=== PATIENT | male | born 1965 | race Caucasian/White ===

== ENCOUNTER 2017-08-08 20:15 | Emergency (ER) | payer SELFPAY ==
[~2017-08-08] VITALS: Ht 195.6 cm; Wt 80.0 kg
[2017-08-08 20:59] VITALS: BP 121/59; PULSE 89; RESP 16; TEMP 98.6; O2SAT 98
--- NOTE | 2017-08-08 21:04 | PD ---
HPI Chief Complaint: Skin Problem Time Seen by Provider: 20:55 Travel History International Travel<30 days: No Contact w/Intl Traveler<30days: No Traveled to known affect area: No History of Present Illness HPI This is a 51-year-old male who is currently homeless who presents for evaluation of medial right foot pain. He reports that 4 [place] he feels like a crap claw that his medial right foot. He reports that he had a wound after that. Since then he has had persistent pain at the site of the wound, aching, constant, aggravated by walking, no relieving factors. He has had difficulty with wound care secondary to his current homeless status. Today he was able to receive a free pair of crutches so he has been using that today to help stay off of the foot. His last tetanus vaccination is unknown. Denies fevers, chills, calf or thigh pain. Denies any weakness. No other complaints. PFSH Past Medical History ?: Not Social History Tobacco Use: Yes Allergies-Medications (Allergen,Severity, Reaction): Coded Allergies: No Known Allergies (Unverified , 08/08/17) Reported Meds & Prescriptions Reported Meds & Active Scripts Active Bactroban Topical (Mupirocin) 22 Gm Cream 1 Applic TOPICAL BID Doxycycline Hyclate 100 Mg Cap 100 Mg PO BID Review of Systems Except as stated in HPI: all other systems reviewed are Neg Physical Exam Narrative GENERAL: Well-developed well-nourished male in no acute distress SKIN: Warm and dry. Examination of the medial right foot reveals a 2 cm circular area of superficial excoriation/ulceration. There is some surrounding scabbing. No erythema or induration. HEAD: Atraumatic. Normocephalic. EYES: Pupils equal and round. No scleral icterus. No injection or drainage. ENT: No nasal bleeding or discharge. Mucous membranes pink and moist. NECK: Trachea midline. No JVD. CARDIOVASCULAR: Regular rate and rhythm. No murmur appreciated. RESPIRATORY: No accessory muscle use. Clear to auscultation. Breath sounds equal bilaterally. GASTROINTESTINAL: Abdomen soft, non-tender, nondistended. Hepatic and splenic margins not palpable. MUSCULOSKELETAL: No obvious deformities. No clubbing. No cyanosis. No edema. Skin as noted above. 2+ dorsalis pedis and posterior tibial pulses. Full range of motion right foot. NEUROLOGICAL: Awake and alert. No obvious cranial nerve deficits. Data Data Last Documented VS Vital Signs Date Time Temp Pulse Resp B/P (MAP) Pulse Ox O2 Delivery O2 Flow Rate FiO2 08/08/17 20:59 98.6 89 16 121/59 (79) 98 Orders Orders Tetanus/Diphtheria Tox Adult (Tetanus/Di (08/08/17 21:15) Foot, Complete ([id number]) (08/08/17 ) Doxycycline (Vibramycin) (08/08/17 21:45) Ed Discharge Order (08/08/17 21:44) MDM Medical Decision Making Medical Screen Exam Complete: Yes Emergency Medical Condition: Yes Medical Record Reviewed: Yes Differential Diagnosis Foot ulcer, cellulitis, abscess, osteomyelitis, necrotizing fasciitis Narrative Course 51-year-old male presents with a circular superficial ulceration in the medial right foot secondary to [place]. Wound care secondary to being homeless. An x-ray was obtained and there is no evidence of osteomyelitis. Tetanus status was updated. Discussed the importance of wound care as the primary catalyst for treatment. He will be discharged with prescriptions for Bactroban and doxycycline. Discussed signs and symptoms that would warrant returning to the emergency room. Diagnosis Primary Impression: Wound, open, foot Additional Instructions: Wash the wound twice a day with soap and water and apply antibiotic cream and clean bandages. Antibiotic as prescribed. Return for any acutely new or worsening symptoms. Med/Other Pt SpecificInfo: Prescription(s) given Scripts Mupirocin Topical (Bactroban Topical) 22 Gm Cream 1 APPLIC TOPICAL BID for Mgmt Bacterial Infection, #1 TUBE 0 Refills Prov: Fabrice Hanna MD 08/08/17 Doxycycline Hyclate (Doxycycline Hyclate) 100 Mg Cap 100 MG PO BID for Infection, #20 CAP 0 Refills Prov: Fabrice Hanna MD 08/08/17 Disposition: 01 DISCHARGE HOME Condition: Stable Abdirizak Bro Aug 08, 2017 21:04
[2017-08-08] MEDS ORDERED: TETANUS/DIPHTHERIA TOXOID ADULT 0.5 ML VIAL IM ONE (21:15)
--- NOTE | 2017-08-08 21:35 | RADRPT ---
EXAM DATE: 08/08/2017 9:27 PM EDT AGE/SEX: 51 years / Male INDICATIONS: Right foot infection after cutting foot in multiple areas. CLINICAL DATA: This is the patient's initial encounter. Patient reports that signs and symptoms have been present for 1 month and indicates a pain score of 6/10. MEDICAL/SURGICAL HISTORY: None. None. COMPARISON: No prior exams available for comparison. FINDINGS: Diffuse soft tissue swelling with focal soft tissue calcifications in the lateral forefoot region adj acent to the proximal metatarsal. Osseous structures appear intact without evidence for bony fracture or focal bony destruction. Joint spaces are grossly maintained. No radiopaque foreign bodies or subc utaneous emphysema. CONCLUSION: 1. Suspect dystrophic calcifications in the lateral forefoot region. 2. No acute fracture or focal bony destruction to suggest osteomyelitis. Electronically signed by: Mj Saha MD 08/08/2017 9:34 PM EDT
[2017-08-08] MEDS ORDERED: DOXYCYCLINE HYCLATE 100 MG CAP PO ONE (21:45)
[2017-08-08] MEDS ORDERED: MUPI2%T TOPICAL (21:45)
[2017-08-08] MEDS ORDERED: DOXY100C PO (21:45)
== END 2017-08-08 22:15 | disposition home or self-care (01) ==
LOC: NEPD 20:15
DX: L97.519 Non-pressure chronic ulcer of other part of right foot with unspecified severity (principal); Z59.0 Homelessness; Z23 Encounter for immunization; Z72.0 Tobacco use
CPT/HCPCS: 73630; 90471; 90714